=== PATIENT | male | born 1975 | race Caucasian/White ===

== ENCOUNTER 2023-06-04 01:24 | Day surgery (SDC) | payer BC, OTHER, SELFPAY ==
[2023-05-30 11:06] VITALS: BMI 35.4
--- NOTE | 2023-05-30 11:11 | PC.NURSE ---
Report to the Outpatient Waiting Room, entrance under the green pavilion located off [facility], at time 1000 on date 06/04/23. Planned Procedure Time: 1200. Time changes happen often and if your time is changed the preop area will call you the afternoon before. - You and your visitor will be asked to self-screen and do not enter if you have any COVID symptoms. - A mask is optional within the hospital at this time. Patients may have clear liquids (water, carbonated beverages, clear teas, apple juice) until 3 hours prior to surgery with a maximum of 20 ounces. - No food from midnight until time of surgery Take the following medications with a SIP of water the morning of surgery: N/A DO NOT STOP ANY OF YOUR OTHER PRESCRIPTION MEDICATIONS PRIOR TO SURGERY ?EXCEPT THE FOLLOWING Medications to discontinue per physician: N/A Date to take last dose: N/A Please no make-up, nail indonesian, hairspray, perfume, deodorant, or body powder the day of surgery. No jewelry (including any body piercings) or valuables the day of surgery, leave them at home. Please take a shower or bath the night before, or the morning of, surgery with an antibacterial soap. Wear comfortable, loose fitting clothing. - Jewelry must be removed prior to entering the operating room. Rings and piercings that are not removed may be cut off. - The hospital will not accept responsibility for valuables. - Please leave all valuables, including medications, at home the day of surgery. If you are going home after surgery, a licensed cart driver must drive you home. - NO public transportation without another adult if you receive anesthesia. - We recommend that an adult stay with you for 24 hours following discharge. - We also recommend that you do not drive, make important decision, drink alcoholic beverages, or take any drugs that were not prescribed by your health care provider for at least 24 hours after your discharge time. Follow any additional instructions given to you from your surgeon. If you or anyone in your household have experienced Covid symptoms in the past week, please notify your surgeon or the nurse liaison at the phone number below for possible testing. Telephone instructions given to PT - OLIVA SINGH and asked if any additional questions and then verbalized understanding. Patient advised to call surgeon office or pre surgery nurse liaison [phone] if any additional questions.
[2023-06-04] VITALS (9 sets, daily range): BP systolic 123–149; BP diastolic 68–89; PULSE 50–67; RESP 16–24; TEMP 36.1–36.3; O2SAT 93–99
--- NOTE | 2023-06-04 08:54 | P.PNAN_ITS ---
Anes - Initial Pre Proc Eval Procedure: Operation Date: 06/04/23 12:00 Proposed Procedures p Arthroscopic Left Shoulder Biceps Tenodesis, Subacromial Decompression, Superior Labrum Anterior and Posterior Repair, Proceed as Indicated - Bruno Mejias MD Date/Time: 06/04/23 08:54 Surgeon: Bruno Mejias MD Pre Op Diagnosis: Lt Shoulder SLAP Tear, Rot Cuff Tenodesis Patient Data Age: 48 Gender: M Height: 1.75 m Weight: 108.9 kg Allergies Allergy/AdvReac Type Severity Reaction Status Date / Time No Known Allergies Allergy Verified 05/30/23 11:05 Home Medications Medication Instructions Recorded Confirmed Type No Home Medications 10/30/22 05/30/23 History Patient hx anesthesia problems: none Family hx anesthesia problems: none Results Review: All pre-operative results and documents have been reviewed as part of the pre- operative evaluation. 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 Gender identity (if verbalized by the patient): Male Spiritual care concerns: No Anes - Eval Final PreProcedure Day of Procedure 06/04/23 08:54 Patient weight: obese Heart: regular rate and rhythm Lungs: clear to auscultation Airway: Mallampati scale class II Neurological: alert and oriented Last oral intake: >/= 8 hours ASA classification: II Emergent: no Anesthetic plan: proceed Anesthesia type and monitoring: general ETT and standard monitoring Results Review: All pre-operative results and documents have been reviewed as part of the pre- operative evaluation. Informed Consent: The patient's anesthetic plan and its attendant risks and benefits were discussed with the patient/family/POA. Questions were solicited and answers provided to the satisfaction of the patient/family/POA.
[2023-06-04] MEDS: ACETAMINOPHEN 500 MG TABLET 1000 MG PO (10:45)
[2023-06-04] MEDS: LACTATED RINGERS 1,000 ML 30 ML IV CONT ×2 (11:20→14:37)
[2023-06-04] MEDS: KETOROLAC 15 MG/ML VIAL (*BKC) IV PUSH (11:32)
--- NOTE | 2023-06-04 11:53 | WPDANESPNB ---
Anes - Peripheral Nerve Block Date/Time: 06/04/23 11:53 I have discussed with the patient/family/POA the placement of a peripheral nerve block for post-operative pain management, including associated risks, benefits, complications, and side effects. Alternative methods of post-operative analgesia were detailed. Questions were solicited and answers provided to the satisfaction of the patient/family/POA. Time-Out: A pre-procedural Time-Out was completed immediately before starting the procedure and confirmed: Patient Identification, Site, Procedure, Patient Position and the Availability of Requisite Equipment. Clinical Indications: Acute post-operative pain management requested by the operative surgeon. Nerve Block Insertion Note Anes-nerve block: interscalene left Patient position: supine Skin prep: chlorhexidine Needle: 22 gauge, stimulating, insulated echogenic needle. Needle length: 50 mm Technique: ultrasound Injectate: bupivacaine 0.5% with epi 5 mcg/ml (30cc- no epi) Observations: tolerated well Complications: none Procedure start time:: 1216 Procedure end time:: 1220
--- NOTE | 2023-06-04 11:57 | WPDHPUPDATE1 ---
History and Physical Update Update Date/Time: 06/04/23 11:57 History and Physical has been reviewed, including an updated exam of the patient. There are NO changes in the patient's condition. Risks, benefits, and alternatives have been discussed and questions answered. Patient agrees to proceed with procedure.
[2023-06-04] MEDS: ceFAZolin 2 GM/D5W 50 ML 2 GM/50 ML BAG IVPB (12:24)
[2023-06-04] MEDS: EPINEPHrine HCL INJ 1 MG/ML AMPUL 3 MG IRRIGATION (13:09)
[2023-06-04] MEDS: ONDANSETRON INJ 4 MG/2 ML VIAL IV PUSH (14:57)
[2023-06-04] MEDS: SCOPOLAMINE 1.5 MG PATCH TRANSDERM (15:46)
[2023-06-04] MEDS: diphenhydrAMINE HCl INJ 50 MG/ML VIAL 25 MG IV PUSH (15:46)
--- NOTE | 2023-06-04 17:18 | P.OP_ITS ---
Procedure Note - Detailed Date of Procedure 06/04/23 Pre-op Diagnosis Lt Shoulder SLAP Tear, Rot Cuff tendinitis with subacromial impingement. Post-op Diagnosis Same Procedure Performed Left shoulder 1. Arthroscopic biceps tenodesis. 2. Arthroscopic SLAP tear debridement 3. Arthroscopic subacromial decompression. Surgeon Bruno Mejias MD Anesthesia General Indications SLAP tear confirmed on MRI as well as supraspinatus tendinosis with impingement. Findings Significant SLAP tear. Instability of the attachment and clear longstanding changes. Mild fraying of the more posterior labrum. Low-grade articular supraspinatus tearing treated with simple debridement less than 20%. The rotator cuff cable intact. Significant evidence for external impingement with mild bursal sided fraying. Evidence of impingement on the undersurface of the acromion. Subacromial decompression performed with acromioplasty. Arthroscopic biceps tenodesis performed with 2 bone tunnels and multiple suture passes. The articular cartilage was healthy. The subscapularis appeared normal. Description of Procedure Preoperative antibiotics were given. The patient was given a general anesthetic. Carefully placed in the beach chair position. Standard posterior arthroscopic anterior arthroscopic portals were established. Inflow with saline pump. Glenohumeral joint inspection revealed normal anatomic cartilage. The S LAP tear was evident. This was lightly debrided and left in situ for the tenodesis, performed in the subacromial space. The tendon was then later release with the electrocautery and a small portion of the superior labrum to add additional stability for healing in the rotator interval and prevention of tenodesis failure. The articular supraspinatus had mild low-grade fraying which was treated with gentle debridement. This was less than 15-20%. Attention was turned to the subacromial space. The bursa was somewhat thickened and removed. There was evidence for outlet impingement with some mild fraying on the bursal side of the rotator cuff supraspinatus and corresponding undersurface of the acromion. The biceps tendon was unroofed and electrocautery was used to treat the ascending arterial branches. A superior tape was passed as well as a distal tape. 3-5 passes of cerclage and internal bites of the tendon were performed with the antegrade Passer for each tape. Bone tunnels were created with the tunneling device. Suture limbs were passed through the tunnel and tied. The tear demonstrated anatomic tension and was quite robust. The more proximal suture incorporated a bit of the rotator interval for added stability. The scope was placed back into the joint and the biceps tendon was released from the superior labrum with a portion of labral tissue providing a bit of a bulkiness to the distal tendon for additional security of the biceps. The arthroscopic instruments were removed. The wounds were closed with interrupted 4-0 Monocryl suture followed by Steri-Strips. A sling was applied. The patient was extubated and brought to recovery room in stable condition. There were no complications. Estimated Blood Loss 10 Pathology None sent Complications No immediate complications Condition Stable Disposition PACU [facility] Billing Surgery - Charge Forward: Surgery Billing
== END 2023-06-04 16:37 | disposition home or self-care (01) ==
PROVIDERS: PCP Family Medicine; Visit Provider Orthopaedic Surgery
PROC: (CPT 29805; principal; 2023-06-04 12:00)
DX: S43.432A Superior glenoid labrum lesion of left shoulder, initial encounter (principal); M75.42 Impingement syndrome of left shoulder; M75.82 Other shoulder lesions, left shoulder; X58.XXXA Exposure to other specified factors, initial encounter; G89.18 Other acute postprocedural pain; E66.9 Obesity, unspecified; Z68.35 Body mass index [BMI] 35.0-35.9, adult
CPT/HCPCS: 29828; 29826; 64415; A9270; J0171; J0690; J1100; J1170; J1200; J1885; J2250; J2405; J2704; J3010; J7120